=== PATIENT | female | born 1995 | race Caucasian/White ===

== ENCOUNTER 2017-06-14 22:37 | Emergency (ER) | payer OTHER ==
[~2017-06-14] VITALS: Ht 162.6 cm; Wt 57.4 kg
[2017-06-14 22:37] VITALS: TEMP 36.4; Ht 162.6 cm; Wt 57.4 kg
[2017-06-14 23:34] LABS: CREATININE 0.69 mg/dl (0.60-1.20); POTASSIUM 3.6 mmol/L (3.5-5.1)
--- NOTE | 2017-06-14 23:40 | EMERGENCY ROOM VISIT NOTE ---
History First contact with patient: 22:40 Chief Complaint: ALCOHOL OVERDOSE Stated Complaint: FALL, ETOH, Nursing Triage Summary: Pt arrived via [facility] EMS from [facility] with PD escort. Per EMS, pt found outside of [facility] stumbling. Friend brought pt inside dormatory and tried to get pt to walk up stairs to room. Pt had multiple witnessed falls while walking up stairs. Hit L knee on stairs and abrasion obtained. Denies hitting head. RA discovered pt stumbling up stairs and PD called. Pt uncooperative with PD and EMS called to scene. Pt tranpsorted to hospital. Upon arrival pt found to be uncooperative with staff and unwilling to answer questions. Pt assisted to change into hospital gown. Left knee found to be abrased. Bleeding controlled. History of Present Illness The patient is a 21 year old female who presents to the Emergency Room via BLS for evaluation of alcohol intoxication. History is limited due to patient's intoxicated state and refusal to answer questions. Per EMS, the patient was found outside of a dormitory building stumbling while trying to walk up the stairs. A friend witnessed her stumble multiple times and the patient sustained abrasions to her knees. There was no head injury. Patient is unwilling to answer questions but denies any complaints. Review of Systems Review of systems was limited due to patient's intoxicated state. 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), Unknown Dose INT UTER CONTINOUS Lisdexamfetamine Dimesylate (Vyvanse), 50 MG PO DAILY Scheduled PRN Ibuprofen (Advil), 200-600 MG PO Q4H PRN for Pain Physical Exam Vital Signs Date Time Temp Pulse Resp B/P (MAP) Pulse Ox O2 Delivery O2 Flow Rate FiO2 06/15/17 06:43 96 14 128/64 96 06/15/17 06:27 82 95 06/15/17 05:57 90 95 06/15/17 05:01 109/63 06/15/17 04:57 97 13 95 06/15/17 04:52 91 12 96 06/15/17 04:22 18 98 06/15/17 04:01 94/44 3/25/18 03:52 88 16 94 06/15/17 03:47 91 15 94 06/15/17 03:31 119/58 06/15/17 03:17 91 15 95 06/15/17 03:01 93/51 06/15/17 02:57 106/59 06/15/17 02:49 90 06/15/17 02:47 89 95 06/15/17 02:31 106/59 06/15/17 02:17 96 16 95 06/15/17 02:12 90 16 95 06/15/17 02:01 99/59 06/15/17 01:42 87 14 94 06/15/17 01:31 98/62 06/15/17 01:12 106 19 99 06/15/17 01:07 83 24 95 06/15/17 01:01 101/55 06/15/17 00:37 81 13 95 06/15/17 00:31 89/43 06/15/17 00:18 107/49 06/15/17 00:07 81 06/14/17 23:37 79 15 06/14/17 23:07 97 24 99 06/14/17 22:51 89 06/14/17 22:43 102/60 06/14/17 22:37 36.4 91 14 102/60 95 Room Air Physical Exam VITALS: Vitals are noted on the nurse's note and reviewed by myself. Vital signs stable. GENERAL: This is a 21-year-old female, lying in bed on her side, appears to be visibly intoxicated, smells of ETOH. SKIN: There is a small abrasion to the anterior left knee. No significant lacerations. HEAD: Normocephalic atraumatic. EARS: External auditory canals clear. No hemotympanum. EYES: Pupils equal round and reactive to light and accommodation. NOSE: No deformities noted. MOUTH: No loose or chipped teeth. NECK: No cervical spine tenderness. HEART: Regular rate and rhythm without murmurs gallops or rubs. LUNGS: Clear to auscultation bilaterally without wheezes, rales or rhonchi. ABDOMEN: Soft, nontender. MUSCULOSKELETAL: Full range of motion throughout. Strength intact throughout. NEURO: Speech slurred. Patient uncooperative and refuses to answer questions. Medical Decision & Procedures Laboratory Results 06/14/17 22:57 Test 06/14/17 22:57 Anion Gap 11.0 mmol/L (3-11) Est Creatinine Clear Calc Drug Dose 113.3 ml/min Estimated GFR () 146.3 Estimated GFR (Non- 126.2 BUN/Creatinine Ratio 14.8 (10-20) Calcium Level 8.0 mg/dl (8.5-10.1) Human Chorionic Gonadotropin, Qual NEG (NEG) Ethyl Alcohol mg/dL 333.0 mg/dl (0-3) Medical Decision Differential diagnosis includes alcohol intoxication, drug use, infection, hypoglycemia, head trauma, among others. The patient is a 21-year-old female who presents today for evaluation of probable alcohol intoxication. Labs revealed an alcohol of 333. Kidney function was found to be within normal limits. Labs were otherwise unremarkable. There is no evidence of head trauma or infection on exam. Of note, patient did mention to nursing staff that she had pain with urination. When the patient woke up I spoke with her about this. She reports she had an IUD inserted 2 days ago and this was what she was referring to. The patient was placed on the cardiac cath tech and placed in the prone position. They were monitored for an appropriate amount of time and when they were more sober, they were reassessed and discharged home in a taxi. The patient was advised not to drink anymore alcohol today and to follow-up with [facility] for any further concerns. Medication Reconcilliation Current Medication List: was personally reviewed by me Blood Pressure Screening Patient's blood pressure: Normal blood pressure Impression Primary Impression: Alcohol intoxication Departure Information Dispostion Home / Self-Care Condition GOOD Patient Instructions My [facility] Additional Instructions You were evaluated in emergency department for intoxication. This is a sign of Alcohol Abuse and should not be taken lightly. You had a blood alcohol level that was significantly elevated. Over the next 24 hours keep well hydrated and eat light meals. Don't drink any more alcohol today. Unless an exceptional circumstance, the Hospital DOES NOT contact anyone during your visit, nor is your Protected Medical Information released to anyone without your approval/request. This means we do not contact your Parents, the Police, [facility], etc. However, you will likely receive a bill from the Hospital and/or your Insurance company, which will usually be sent to the Primary Policy Young (often one's Parents) If your incident was on campus, or if the Police were involved, they will often contact the University to make them aware of what happened. Often this will result in you being required to take Alcohol Education classes (ie BASICS class) . Please see information given to you at discharge regarding contact for this. If the Police were involved you will likely be cited for public intoxication. Please contact either [facility] Police or the [place] Police for further information. Call 911 or return to Emergency Department if you develop: Passing out, difficulty breathing, many episodes of vomiting, blood in vomit or stool, abdominal pain, fevers, or other severe symptoms. We are always here to help if you feel you need further evaluation or treatment. Problem Qualifiers Primary Impression: Alcohol intoxication Complication of substance-induced condition: uncomplicated Qualified Codes: F10.920 - Alcohol use, unspecified with intoxication, uncomplicated
[2017-06-15] MEDS ORDERED: IBUP-1277 PO (05:21)
[2017-06-15] MEDS ORDERED: LISD50CA4 PO (05:21)
[2017-06-15] MEDS ORDERED: IUD'IUD INT UTER (05:21)
[2017-06-15 06:43] VITALS: BP 128/64; PULSE 96; O2SAT 96
== END 2017-06-15 06:46 | disposition home or self-care (01) ==
LOC: EDBD 22:37 → C.EDB 22:40
DX: F10.920 Alcohol use, unspecified with intoxication, uncomplicated (principal); Z79.899 Other long term (current) drug therapy

== ENCOUNTER 2018-06-14 12:41 | Inpatient (IN) ==
[2018-06-14 13:43] LABS: Appearance Urine Clear (Clear); Bilirubin Urine Negative (Negative); Blood Urine Negative (Negative); Color Urine Yellow; Glucose Urine UA Negative (Negative); Ketones Urine Trace (Negative); Leukocyte Esterase Urine Negative (Negative); Nitrite Urine Negative (Negative); Protein Urine Negative (Negative); Specific Gravity Urine 1.025 (1.000-1.030); Urobilinogen Urine Negative (Negative)
[2018-06-14 13:53] LABS: Basophils # (auto) 0.04 K/uL (0-0.2); Basophils % (auto) 0.4 %; Eosinophils # (auto) 0.11 K/uL (0-0.5); Eosinophils % (auto) 1.1 %; Hematocrit (blood only) 44.3 % (37-47); Hemoglobin 15.5 g/dL (12.0-16.0); Immature Granulocytes # (auto) 0.02 K/uL (0.00-0.02); Immature Granulocytes % (auto) 0.2 %; Lymphocytes # (auto) 2.12 K/uL (1.2-3.4); Lymphocytes % (auto) 20.7 %; Mean Corpuscular Volume 89.5 fL (80-100); Mean Platelet Volume 8.6 fL (7.4-10.4); Monocytes # (auto) 0.36 K/uL (0.11-0.59); Monocytes % (auto) 3.5 %; Neutrophils # (auto) 7.61 K/uL (1.4-6.5); Neutrophils % (auto) 74.1 %; Platelet Count 307 K/uL (130-400); RDW Coefficient of Variation 12.6 % (11.5-14.5); RDW Standard Deviation 40.9 fL (36.4-46.3); Red Blood Count 4.95 M/uL (4.2-5.4); White Blood Count 10.26 K/uL (4.8-10.8)
[2018-06-14 14:10] LABS: Amphetamines+Metham, Urine Pos (Neg); Barbiturates, Urine Neg (Neg); Benzodiazepine, Urine Neg (Neg); Cocaine, Urine Neg (Neg); MDMA (Ecstacy), Urine Neg (Neg); Methadone, Urine Neg (Neg); Opiate, Urine Neg (Neg); Phencyclidine, Urine Neg (Neg)
[2018-06-14 14:11] LABS: Alanine Aminotransferase 24 U/L (12-78); Albumin Level 4.3 gm/dl (3.4-5.0); Aspartate Aminotransferase 20 U/L (15-37); BUN Creatinine Ratio 14.3 (10-20); Blood Urea Nitrogen 12 mg/dl (7-18); Carbon Dioxide 30 mmol/L (21-32); Chloride 107 mmol/L (98-107); Creatinine Clr Calc Pharmacy 87.1 ml/min; Est GFR (African American) 121.2; Est GFR (Non-African American) 104.6; Glucose 69 mg/dl (70-99); Sodium 144 mmol/L (136-145)
[2018-06-14 14:14] LABS: Acetaminophen < 2 ug/ml (10-30); Salicylate < 1.7 mg/dl (2.8-20)
[2018-06-14 14:22] LABS: Albumin Globulin Ratio 1.3 (0.9-2); Alkaline Phosphatase 77 U/L (45-117); Bilirubin,Total 0.5 mg/dl (0.2-1); Globulin 3.4 gm/dl (2.5-4.0); Total Protein 7.7 gm/dl (6.4-8.2)
[2018-06-14 14:25] LABS: Pregnancy Test, Serum Negative (Negative)
--- NOTE | 2018-06-14 16:00 | Emergency Department Note ---
Entered by Westley Brown acting as a scribe for History of Present Illness General Chief complaint: Mental Health Evaluation Stated complaint: MENTAL HEALTH EVAL Time Seen by Provider: 06/14/18 12:53 Source: patient History of Present Illness Onset (ago): day(s) (today) Location: head Pain Consistency: + constant Quality: + other (suicidal ideations) Associated symptoms: + other (Positive for paranoia. Negative for hallucinations and homicidal ideations.) The patient is a 22 year old female who presents to the emergency department with complaints of constant suicidal ideations beginning today. The patient states that she has a history of depression and anxiety. She notes that a friend called police today because the patient told him that she would be fine is she went to sleep and did not wake up. She reports that she took six lamotrigine pills, extra melatonin, and the rest of her normal medication this morning around 1100. The patient states that she has had suicidal thoughts in the past but has never tried to harm herself. She notes that she has goodbye letters written. She reports that she has thoughts of overdosing. The patient states that she is extremely paranoid, and she notes that her paranoia worsens when she is depressed and anxious. She denies any homicidal ideations and hallucinations. She reports that both of her parents have mental illnesses. The patient states that she drinks alcohol but does not use cigarettes and drugs. Home Medications Home Medications Medication Instructions Recorded Confirmed Type buspirone 15 mg PO Q12 06/14/18 06/14/18 History lamotrigine 25 mg PO QPM 06/14/18 06/14/18 History lisdexamfetamine [Vyvanse] 50 mg PO QAM 06/14/18 06/14/18 History venlafaxine 75 mg PO QAM 06/14/18 06/14/18 History venlafaxine 150 mg PO QAM 06/14/18 06/14/18 History Allergies Allergy/AdvReac Type Severity Reaction Status Date / Time No Known Allergies Allergy Verified 06/14/18 13:36 Past Med/Surg History Medical History Anxiety Depression Family History Other No significant family history Social History Preferred Language: Micronesian Communication Ability: Effective Yeast Maker Required: No Beliefs That Will Affect Care: None Feels Safe at Home: Yes Smoking Status: Never smoker Hx Alcohol Use: Yes Hx Substance Use: No Review of Systems See HPI for pertinent positives & negatives. and A total of 10 systems reviewed and were otherwise negative Physical Exam Vital Signs Vital Signs - 24 hr 06/16/18 07:11 06/16/18 07:12 Temperature 36.7 C Temperature Source Oral Pulse Rate [Left Brachial] 90 105 H Pulse Rhythm [Left Brachial] Regular Regular Pulse Strength [Left Brachial] Normal Normal Respiratory Rate 16 Respiratory Effort / Characteristics Non-Labored Respiratory Depth Normal Respiratory Pattern Regular Blood Pressure [Left Arm] 114/76 101/64 Blood Pressure Mean [Left Arm] 88 76 Blood Pressure Position [Left Arm] Lying Sitting GENERAL: alert, well appearing, well nourished, no distress, non-toxic EYE EXAM: normal conjunctiva, PERRL and EOM's grossly intact OROPHARYNX: no exudate, no erythema, lips, buccal mucosa, and tongue normal and mucous membranes are moist NECK: supple, no nuchal rigidity, no adenopathy, non-tender LUNGS: Clear to auscultation. Normal chest wall mechanics HEART: no murmurs, S1 normal and S2 normal ABDOMEN: abdomen soft, non-tender, normo-active bowel sounds, no masses, no rebound or guarding. BACK: Back is symmetrical on inspection and there is no deformity, no midline tenderness, no CVA tenderness. SKIN: no rashes and no bruising UPPER EXTREMITIES: upper extremities are grossly normal. FROM. LOWER EXTREMITIES: No pitting edema. FROM. NEURO EXAM: Normal sensorium, cranial nerves II-XII grossly intact, normal speech, no gross weakness of arms, no gross weakness of legs. PSYCH: Positive SI with plan, depression, anxiety, positive paranoia, denies h allucinations. Course 1300: Past medical records reviewed. The patient was evaluated in room A7, and a complete history and physical examination were performed. 1530: Case discussed with poison control. They suggested adding EKG. If no concerning findings, could continue to pursue psychiatric mgmt. 1705: The patient was accepted to [facility]. Administered Medications Buspirone HCl (Buspar) 15 mg PO BID ESTUARDO Stop: 07/14/18 20:59 Last Admin: 06/16/18 09:40 Dose: 15 mg Documented by: [id number] Admin: 06/15/18 21:27 Dose: 15 mg Documented by: [id number] Admin: 06/15/18 10:01 Dose: 15 mg Documented by: [id number] Cosigned by: [id number] Admin: 06/14/18 21:18 Dose: 15 mg Documented by: [id number] Escitalopram Oxalate (Lexapro) 10 mg PO [facility] Stop: 07/15/18 10:14 Last Admin: 06/16/18 09:40 Dose: 10 mg Documented by: [id number] Admin: 06/15/18 11:18 Dose: 10 mg Documented by: [id number] Hydroxyzine HCl (Vistaril) 50 mg PO HSZ PRN PRN Reason: Insomnia Stop: 07/14/18 17:42 Last Admin: 06/15/18 22:23 Dose: 50 mg Documented by: [id number] Admin: 06/14/18 21:20 Dose: 50 mg Documented by: [id number] Venlafaxine HCl (Effexor Extended Release) 150 mg PO [facility] Stop: 07/15/18 10:14 Last Admin: 06/16/18 09:40 Dose: 150 mg Documented by: [id number] Admin: 06/15/18 11:18 Dose: 150 mg Documented by: [id number] Discontinued Medications Buspirone HCl (Buspar) 10 mg PO NOW STA Stop: 06/15/18 10:11 Last Admin: 06/15/18 15:33 Dose: Not Given Documented by: [id number] Buspirone HCl (Buspar) 15 mg PO NOW STA Stop: 06/15/18 11:22 Last Admin: 06/15/18 15:33 Dose: Not Given Documented by: [id number] Medical Decision Making Differential Diagnosis Differential diagnosis: Etiologies such as psychiatric disorder, infection, hypoglycemia, electrolyte abnormalities, cardiac sources, intracerebral event, toxicological process, neurologic disorder, as well as others were entertained. Medical Records Attestation: I reviewed the patient's medical records. Home Medications Current Medication List: was personally reviewed by me Laboratory Data Attestation: I reviewed the patient's lab results. Result diagrams: 06/14/18 13:43 06/14/18 13:43 Lab Results 06/14/18 06/14/18 06/14/18 Range/Units 13:27 13:27 13:43 WBC 10.26 (4.8-10.8) K/uL RBC 4.95 (4.2-5.4) M/uL Hgb 15.5 (12.0-16.0) g/dL Hct 44.3 (37-47) % MCV 89.5 (80-100) fL MCH 31.3 (25-34) pg MCHC 35.0 (32-36) g/dL RDW Std Deviation 40.9 (36.4-46.3) fL RDW Coeff of Miri 12.6 (11.5-14.5) % Plt Count 307 (130-400) K/uL MPV 8.6 (7.4-10.4) fL Immature Gran % (Auto) 0.2 % Neut % (Auto) 74.1 % Lymph % (Auto) 20.7 % [place] % (Auto) 3.5 % Eos % (Auto) 1.1 % Baso % (Auto) 0.4 % Immature Gran # (Auto) 0.02 (0.00-0.02) K/uL Neut # (Auto) 7.61 H (1.4-6.5) K/uL Lymph # (Auto) 2.12 (1.2-3.4) K/uL [place]k # (Auto) 0.36 (0.11-0.59) K/uL Eos # (Auto) 0.11 (0-0.5) K/uL Baso # (Auto) 0.04 (0-0.2) K/uL Sodium (136-145) mmol/L Potassium (3.5-5.1) mmol/L Chloride (98-107) mmol/L Carbon Dioxide (21-32) mmol/L Anion Gap (3-11) BUN (7-18) mg/dl Creatinine (0.6-1.2) mg/dl Est Cr Clr Drug Dosing ml/min Est GFR ( Amer) Est GFR (Non-Af Amer) BUN/Creatinine Ratio (10-20) Glucose (70-99) mg/dl Calcium (8.5-10.1) mg/dl Total Bilirubin (0.2-1) mg/dl AST (15-37) U/L ALT (12-78) U/L Alkaline Phosphatase (45-117) U/L Troponin I (0-0.045) ng/ml Total Protein (6.4-8.2) gm/dl Albumin (3.4-5.0) gm/dl Globulin (2.5-4.0) gm/dl Albumin/Globulin Ratio (0.9-2) TSH (0.300-4.500) uIu/ml HCG, Qual (Negative) Urine Color Yellow Urine Appearance Clear (Clear) Urine pH 7.0 (4.5-7.5) Ur Specific [place] 1.025 (1.000-1.030) Urine Protein Negative (Negative) Urine Glucose (UA) Negative (Negative) Urine Ketones Trace H (Negative) Urine Blood Negative (Negative) Urine Nitrite Negative (Negative) Urine Bilirubin Negative (Negative) Urine Urobilinogen Negative (Negative) Ur Leukocyte Esterase Negative (Negative) Salicylates (2.8-20) mg/dl Urine Opiates Screen Neg (Neg) Ur Methadone, Qual Neg (Neg) Acetaminophen (10-30) ug/ml Urine Barbiturates Neg (Neg) Ur Phencyclidine (PCP) Neg (Neg) U Amphetamin/Meth Scrn Pos H (Neg) MDMA (Ecstasy) Screen Neg (Neg) U Benzodiazepines Scrn Neg (Neg) Ur Cocaine Metabolite Neg (Neg) U Marijuana (THC) Screen Neg (Neg) Ethyl Alcohol mg/dL (0-3) mg/dl 06/14/18 06/14/18 06/14/18 Range/Units 13:43 13:43 13:43 WBC (4.8-10.8) K/uL RBC (4.2-5.4) M/uL Hgb (12.0-16.0) g/dL Hct (37-47) % MCV (80-100) fL MCH (25-34) pg MCHC (32-36) g/dL RDW Std Deviation (36.4-46.3) fL RDW Coeff of Miri (11.5-14.5) % Plt Count (130-400) K/uL MPV (7.4-10.4) fL Immature Gran % (Auto) % Neut % (Auto) % Lymph % (Auto) % [place] % (Auto) % Eos % (Auto) % Baso % (Auto) % Immature Gran # (Auto) (0.00-0.02) K/uL Neut # (Auto) (1.4-6.5) K/uL Lymph # (Auto) (1.2-3.4) K/uL [place] # (Auto) (0.11-0.59) K/uL Eos # (Auto) (0-0.5) K/uL Baso # (Auto) (0-0.2) K/uL Sodium 144 (136-145) mmol/L Potassium 4.0 (3.5-5.1) mmol/L Chloride 107 (98-107) mmol/L Carbon Dioxide 30 (21-32) mmol/L Anion Gap 7.0 (3-11) BUN 12 (7-18) mg/dl Creatinine 0.81 (0.6-1.2) mg/dl Est Cr Clr Drug Dosing 87.1 ml/min Est GFR ( Amer) 121.2 Est GFR (Non-Af Amer) 104.6 BUN/Creatinine Ratio 14.3 (10-20) Glucose 69 L (70-99) mg/dl Calcium 9.0 (8.5-10.1) mg/dl Total Bilirubin 0.5 (0.2-1) mg/dl AST 20 (15-37) U/L ALT 24 (12-78) U/L Alkaline Phosphatase 77 (45-117) U/L Troponin I < 0.015 (0-0.045) ng/ml Total Protein 7.7 (6.4-8.2) gm/dl Albumin 4.3 (3.4-5.0) gm/dl Globulin 3.4 (2.5-4.0) gm/dl Albumin/Globulin Ratio 1.3 (0.9-2) TSH 0.777 (0.300-4.500) uIu/ml HCG, Qual (Negative) Urine Color Urine Appearance (Clear) Urine pH (4.5-7.5) Ur Specific [place] (1.000-1.030) Urine Protein (Negative) Urine Glucose (UA) (Negative) Urine Ketones (Negative) Urine Blood (Negative) Urine Nitrite (Negative) Urine Bilirubin (Negative) Urine Urobilinogen (Negative) Ur Leukocyte Esterase (Negative) Salicylates < 1.7 L (2.8-20) mg/dl Urine Opiates Screen (Neg) Ur Methadone, Qual (Neg) Acetaminophen < 2 L (10-30) ug/ml Urine Barbiturates (Neg) Ur Phencyclidine (PCP) (Neg) U Amphetamin/Meth Scrn (Neg) MDMA (Ecstasy) Screen (Neg) U Benzodiazepines Scrn (Neg) Ur Cocaine Metabolite (Neg) U Marijuana (THC) Screen (Neg) Ethyl Alcohol mg/dL 64.5 H (0-3) mg/dl 06/14/18 06/14/18 Range/Units 13:43 13:43 WBC (4.8-10.8) K/uL RBC (4.2-5.4) M/uL Hgb (12.0-16.0) g/dL Hct (37-47) % MCV (80-100) fL MCH (25-34) pg MCHC (32-36) g/dL RDW Std Deviation (36.4-46.3) fL RDW Coeff of Miri (11.5-14.5) % Plt Count (130-400) K/uL MPV (7.4-10.4) fL Immature Gran % (Auto) % Neut % (Auto) % Lymph % (Auto) % [place] % (Auto) % Eos % (Auto) % Baso % (Auto) % Immature Gran # (Auto) (0.00-0.02) K/uL Neut # (Auto) (1.4-6.5) K/uL Lymph # (Auto) (1.2-3.4) K/uL [place] # (Auto) (0.11-0.59) K/uL Eos # (Auto) (0-0.5) K/uL Baso # (Auto) (0-0.2) K/uL Sodium (136-145) mmol/L Potassium (3.5-5.1) mmol/L Chloride (98-107) mmol/L Carbon Dioxide (21-32) mmol/L Anion Gap (3-11) BUN (7-18) mg/dl Creatinine (0.6-1.2) mg/dl Est Cr Clr Drug Dosing ml/min Est GFR ( Amer) Est GFR (Non-Af Amer) BUN/Creatinine Ratio (10-20) Glucose (70-99) mg/dl Calcium (8.5-10.1) mg/dl Total Bilirubin (0.2-1) mg/dl AST (15-37) U/L ALT (12-78) U/L Alkaline Phosphatase (45-117) U/L Troponin I Cancelled (0-0.045) ng/ml Total Protein (6.4-8.2) gm/dl Albumin (3.4-5.0) gm/dl Globulin (2.5-4.0) gm/dl Albumin/Globulin Ratio (0.9-2) TSH (0.300-4.500) uIu/ml HCG, Qual Negative (Negative) Urine Color Urine Appearance (Clear) Urine pH (4.5-7.5) Ur Specific [place] (1.000-1.030) Urine Protein (Negative) Urine Glucose (UA) (Negative) Urine Ketones (Negative) Urine Blood (Negative) Urine Nitrite (Negative) Urine Bilirubin (Negative) Urine Urobilinogen (Negative) Ur Leukocyte Esterase (Negative) Salicylates (2.8-20) mg/dl Urine Opiates Screen (Neg) Ur Methadone, Qual (Neg) Acetaminophen (10-30) ug/ml Urine Barbiturates (Neg) Ur Phencyclidine (PCP) (Neg) U Amphetamin/Meth Scrn (Neg) MDMA (Ecstasy) Screen (Neg) U Benzodiazepines Scrn (Neg) Ur Cocaine Metabolite (Neg) U Marijuana (THC) Screen (Neg) Ethyl Alcohol mg/dL (0-3) mg/dl ECG Data Attestation: I personally reviewed and interpreted this ECG as follows: Indication: toxicologic Rate (beats per minute): 104 Rhythm: sinus tachycardia Findings: + RBBB (appearance of incomplete RBBB in V2) and + T-wave inversion (in 3 and V3); no ST elevation Comparison ECG Date: no prior available Additional Comments: Normal axis, normal intervals. Blood Pressure Blood Pressure Findings: Normal blood pressure Blood Pressure Disposition: did not require urgent referral MDM Narrative Pt here calm and cooperative but with concerning story and history. She was medically cleared and evaluated by psych supportive employment case manager. Pt agreeable with plan and signed 201. Impression & Plan Depression, Suicidal ideation, Overdose Discharge Plan Visit Data *Final* Discharge Date/Time: 06/14/18 17:11 Chief Complaint: Mental Health Evaluation Stated Complaint: MENTAL HEALTH EVAL ED Provider: Martha Hernandez Discharge Problem: Depression, Suicidal ideation, Overdose Patient Disposition: Admitted As Inpatient Discharge Instructions Interventions: ED Discharge Assessment Last Done: 06/14/18 17:11 Discharge Problem: Depression Qualifiers: Depression Type: major depressive disorder Major depression recurrence: recurrent Active/Remission status: currently active Major depression episode severity: moderate Qualified Code(s): F33.1 - Major depressive disorder, recurrent, moderate Overdose Qualifiers: Encounter type: initial encounter Injury intent: intentional self-harm Qualified Code(s): T50.902A - Poisoning by unspecified drugs, medicaments and biological substances, intentional self-harm, initial encounter The scribe's documentation has been prepared under my direction and personally reviewed by me in its entirety. I confirm that the note above accurately r eflects all work, treatment, procedures, and medical decision making performed by me.
[2018-06-14 16:21] LABS: Troponin I < 0.015 ng/ml (0-0.045)
[2018-06-14 16:43] VITALS: O2SAT 99
[2018-06-14] MEDS ORDERED: BISMUTH SUBSALICYLATE PER ML OMNICELL CHARGE PO PRN (17:43)
[2018-06-14] MEDS ORDERED: SODIUM CHLORIDE 0.65% NA SOLN 45 ML (OCEAN) PRN (17:43)
[2018-06-14] MEDS ORDERED: ACETAMINOPHEN 325 MG TAB PO PRN (17:43)
[2018-06-14] MEDS ORDERED: ALUMINUM/MAGNESIUM SUSP 30 ML UDC PO PRN (17:43)
[2018-06-14] MEDS ORDERED: MAGNESIUM HYDROXIDE SUSP 30 ML UDC PO PRN (17:43)
[2018-06-14] MEDS: BusPIRone 15 MG TAB PO SCH (21:18)
[2018-06-15] MEDS: BusPIRone 15 MG TAB PO SCH ×2 (10:01→21:27)
--- NOTE | 2018-06-15 10:09 | History & Physical ---
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 This was perceived as suicidal by a friend. She reports that medications of never had a robust response and does not think that the Effexor has been helpful and agrees now to taper down on Effexor with a plan to trial Lexapro. She has had only one trial of an SSRI, Zoloft, to which she had a negative reaction of increasing depression. She was only recently started on Lamictal, current dose 25 mg in the evening. Although this is a low dose, she does not think that it has been helping and it correlates with a period of time during which her alcohol response has been magnified. Will discontinue unless we receive information from her outpatient provider that she had a specific purpose for it. We will assist the patient to obtain local providers, have a family meeting with her parents and be in contact with the University as needed. At this time, the patient requires inpatient mental health treatment until we have determined that she is safe for discharge and no longer at risk of self-harm. (1) Depression: 06/15 - Reduce Effexor XR to 150 mg daily to begin taper - Start Lexapro 10 mg daily - Continue home dose of buspar - Will hold Vyvanse today to evaluate anxiety off of stimulants - Q q5 min checks for safety - Encourage participation in group and individual counseling - FAmily meeting - Will need local providers - Obtain OP records from [facility] in [facility] - Recommend abstaining from alcohol given that she can predict being depressed the next day - Assist the patient to explore healthy coping strategies - Safety planning Active/Remission status: currently active Depression Type: major depressive disorder Major depression episode severity: moderate Major d epression recurrence: recurrent Qualified Code(s): F33.1 - Major depressive disorder, recurrent, moderate Present on Admission?: Yes Inventory Assets Strengths: Intelligence, desire to get better Needs: Give up binge drinking, healthy coping strategies needed Risk Factors Assessment Male: No : Yes Do You Have Access To A Gun?: No Health Problems: No Mental Health Diagnoses: Yes Substance Use Disorders: No Previous Attempt: No Family History of Suicide: No Previous Psychiatric Hospitalization: No Hopelessness: No Smoker: No Protective Factors Assessment : No Responsible for Young Children: No Employed: Yes Stable Relationships: Yes Supportive Family: Yes Psychiatric History Identifying Data NANDO BOTELLO is a 22-year-old [facility], who presented to the emergency department after taking extra Lamictal and melatonin. She denies acute stressors. Information is gathered from the patient and considered to be reliable. Chief Complaint "" My friend thought that I took extra medicines to but I just wanted to sleep. History of Present Illness The patient is a 22-year-old [facility], currently in treatment with a nurse practitioner at home in the [place] area. She admits that she has struggled with anxiety for a long time, since she was a child and when she began having panic attacks, went into treatment for the first time. Her nurse practitioner started her on Zoloft but unfortunately she got more depressed. She was then started on Effexor and BuSpar which she continues to take. She does not think that the Effexor has been helpful at any dose. She was recently, several months ago, started on Lamictal although denies any symptoms of bipolarity. 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 She also notes that she is particularly sensitive when it comes to friends, for example saying that if her friends do not call her back in the time frame she expects, she thinks that they do not like her. The patient has noted that she gets more depressed after she drinks and she generally goes up to drink until drunk 1 time per week. She drank this past Friday and on Friday woke up feeling more depressed. She denies that she was feeling suicidal but says that she did not want to experience the depression and so just wanted to go to sleep, and that is why she took Lamictal and melatonin. She was apparently talking with a friend making statements about wanting to sleep away her depression and he took it as suicidal statements. Over the course of the last several months she describes that her mood has been somewhat up and down but predominantly depressed. She again denies that she has suicidal thoughts today. She describes her sleep is "awful" with significant difficulty falling asleep as much as 2 hours. Her appetite is been up which it usually is when she is depressed but her weight has been stable. She reports that her anxiety of late has been relatively well controlled and denies current panic attacks. Her energy is described as low. She denies hallucinations, self-injurious acts, symptoms of an eating disorder or OCD. She does admit that she chews her nails when she is anxious. She denies discrete episodes of euphoric mood, sleeplessness or pleasure seeking behaviors that would be congruent with a bipolar disorder. Past Psychiatric History Previous Psych History: Sees a nurse practitioner at home in the [place] area and last semester when she was in [place], saw a psychiatrist. Current Psychiatric Diagnosis: Depression, Anxiety, ADD Outpatient Services: Nurse practitioner at home in the [facility] Previous Psych Admissions: Denies Do You Have Access To A Gun?: No History of Previous Suicide Attempt: No Describe Attempts in the Past: No previous attempts Past Medication Trials: Zoloftincrease in depression Seroquelworked well for sleep Past Head Trauma/Neuro History History of Concussion/Seizure: Yes History of 3 concussions related to sports (track, field hockey, soccer) Allergies Allergy/AdvReac Type Severity Reaction Status Date / Time No Known Allergies Allergy Verified 06/14/18 13:36 Home Medications Home Medications Medication Instructions Recorded Confirmed Type buspirone 15 mg PO Q12 06/14/18 06/14/18 History lamotrigine 25 mg PO QPM 06/14/18 06/14/18 History lisdexamfetamine [Vyvanse] 50 mg PO QAM 06/14/18 06/14/18 History venlafaxine 75 mg PO QAM 06/14/18 06/14/18 History venlafaxine 150 mg PO QAM 06/14/18 06/14/18 History Family History Family History of: Depression and Anxiety Family Mental Health History Comment: Parents with anxiety, father with possible depression Alcohol History Hx of Alcohol Use Over the Past 12 Months: Yes (Occassionally socially) AUDIT Total Score: 5 Smoking Use Have You Smoked or Used Tobacco Products in the Last 30 Days: No Smoking Status: Never smoker Substance History Hx of Prescription Med Misuse Over the Past 12 Months: No Hx of Over the Counter Med Misuse Over the Past 12 Months: No Hx of Inhalent Misuse Over the Past 12 Months: No Hx of Organic Substance Use Over the Past 12 Months: No Hx of Illegal Substances/Street Drug Use Over Past 12 Months: No Problems as a Result of Past Substance Use: None Identified Personal History Living Arrangements: Home Childhood: Grew up in [facility]. She was raised by both parents. Mother is a mis director, father as an investment underwriter. She has 2 younger siblings, one sister, one brother. 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 Beliefs That Will Affect Care: None Feels Safe at Home: Yes Smoking Status: Never smoker Hx Alcohol Use: Yes Hx Substance Use: No Review of Systems All systems reviewed & are unremarkable except as noted in HPI & below Additional Comments: Occasional palpitations, EKG within normal limits and recent Holter was negative Integumentary: + problem reported Small healing burn on left wrist from a curling iron Physical Exam Vital Signs (Past 24 Hours) Last Vital Signs Temp 36.6 C 06/15/18 07:06 Pulse 74 06/15/18 07:07 Resp 16 06/15/18 07:06 BP 117/78 06/15/18 07:07 Pulse Ox 99 06/14/18 16:42 Results & Data Laboratory Results Laboratory Results - last 24 hr 06/14/18 06/14/18 06/14/18 13:27 13:27 13:43 WBC 10.26 RBC 4.95 Hgb 15.5 Hct 44.3 MCV 89.5 MCH 31.3 MCHC 35.0 RDW Std Deviation 40.9 RDW Coeff of Miri 12.6 Plt Count 307 MPV 8.6 Immature Gran % (Auto) 0.2 Neut % (Auto) 74.1 Lymph % (Auto) 20.7 [place] % (Auto) 3.5 Eos % (Auto) 1.1 Baso % (Auto) 0.4 Immature Gran # (Auto) 0.02 Neut # (Auto) 7.61 H Lymph # (Auto) 2.12 [place] # (Auto) 0.36 Eos # (Auto) 0.11 Baso # (Auto) 0.04 Sodium Potassium Chloride Carbon Dioxide Anion Gap BUN Creatinine Est Cr Clr Drug Dosing Est GFR ( Amer) Est GFR (Non-Af Amer) BUN/Creatinine Ratio Glucose Calcium Total Bilirubin AST ALT Alkaline Phosphatase Troponin I Total Protein Albumin Globulin Albumin/Globulin Ratio TSH HCG, Qual Urine Color Yellow Urine Appearance Clear Urine pH 7.0 Ur Specific [place] 1.025 Urine Protein Negative Urine Glucose (UA) Negative Urine Ketones Trace H Urine Blood Negative Urine Nitrite Negative Urine Bilirubin Negative Urine Urobilinogen Negative Ur Leukocyte Esterase Negative Salicylates Urine Opiates Screen Neg Ur Methadone, Qual Neg Acetaminophen Urine Barbiturates Neg Ur Phencyclidine (PCP) Neg U Amphetamin/Meth Scrn Pos H MDMA (Ecstasy) Screen Neg U Benzodiazepines Scrn Neg Ur Cocaine Metabolite Neg U Marijuana (THC) Screen Neg Ethyl Alcohol mg/dL 06/14/18 06/14/18 06/14/18 13:43 13:43 13:43 WBC RBC Hgb Hct MCV MCH MCHC RDW Std Deviation RDW Coeff of Miri Plt Count MPV Immature Gran % (Auto) Neut % (Auto) Lymph % (Auto) [place] % (Auto) Eos % (Auto) Baso % (Auto) Immature Gran # (Auto) Neut # (Auto) Lymph # (Auto) [place] # (Auto) Eos # (Auto) Baso # (Auto) Sodium 144 Potassium 4.0 Chloride 107 Carbon Dioxide 30 Anion Gap 7.0 BUN 12 Creatinine 0.81 Est Cr Clr Drug Dosing 87.1 Est GFR ( Amer) 121.2 Est GFR (Non-Af Amer) 104.6 BUN/Creatinine Ratio 14.3 Glucose 69 L Calcium 9.0 Total Bilirubin 0.5 AST 20 ALT 24 Alkaline Phosphatase 77 Troponin I < 0.015 Total Protein 7.7 Albumin 4.3 Globulin 3.4 Albumin/Globulin Ratio 1.3 TSH 0.777 HCG, Qual Urine Color Urine Appearance Urine pH Ur Specific [place] Urine Protein Urine Glucose (UA) Urine Ketones Urine Blood Urine Nitrite Urine Bilirubin Urine Urobilinogen Ur Leukocyte Esterase Salicylates < 1.7 L Urine Opiates Screen Ur Methadone, Qual Acetaminophen < 2 L Urine Barbiturates Ur Phencyclidine (PCP) U Amphetamin/Meth Scrn MDMA (Ecstasy) Screen U Benzodiazepines Scrn Ur Cocaine Metabolite U Marijuana (THC) Screen Ethyl Alcohol mg/dL 64.5 H 06/14/18 06/14/18 13:43 13:43 WBC RBC Hgb Hct MCV MCH MCHC RDW Std Deviation RDW Coeff of Miri Plt Count MPV Immature Gran % (Auto) Neut % (Auto) Lymph % (Auto) [place] % (Auto) Eos % (Auto) Baso % (Auto) Immature Gran # (Auto) Neut # (Auto) Lymph # (Auto) [place] # (Auto) Eos # (Auto) Baso # (Auto) Sodium Potassium Chloride Carbon Dioxide Anion Gap BUN Creatinine Est Cr Clr Drug Dosing Est GFR ( Amer) Est GFR (Non-Af Amer) BUN/Creatinine Ratio Glucose Calcium Total Bilirubin AST ALT Alkaline Phosphatase Troponin I Cancelled Total Protein Albumin Globulin Albumin/Globulin Ratio TSH HCG, Qual Negative Urine Color Urine Appearance Urine pH Ur Specific [place] Urine Protein Urine Glucose (UA) Urine Ketones Urine Blood Urine Nitrite Urine Bilirubin Urine Urobilinogen Ur Leukocyte Esterase Salicylates Urine Opiates Screen Ur Methadone, Qual Acetaminophen Urine Barbiturates Ur Phencyclidine (PCP) U Amphetamin/Meth Scrn MDMA (Ecstasy) Screen U Benzodiazepines Scrn Ur Cocaine Metabolite U Marijuana (THC) Screen Ethyl Alcohol mg/dL Current Inpatient Medications Current Inpatient Medications: Current Inpatient Medications Acetaminophen (Tylenol) 650 mg PO Q4H PRN PRN Reason: Headache or Minor Fever Stop: 07/14/18 17:42 Al Hydrox/Mg Hydrox/Simethicone (Maalox) 30 ml PO Q4H PRN PRN Reason: GI Upset Stop: 07/14/18 17:42 Bismuth Subsalicylate (Kaopectate) 15 ml PO PRN PRN PRN Reason: Loose Stool Stop: 07/14/18 17:42 Buspirone HCl (Buspar) 15 mg PO BID ESTUARDO Stop: 07/14/18 20:59 Last Admin: 06/14/18 21:18 Dose: 15 mg Documented by: Hydroxyzine HCl (Vistaril) 50 mg PO HSZ PRN PRN Reason: Insomnia Stop: 07/14/18 17:42 Last Admin: 06/14/18 21:20 Dose: 50 mg Documented by: Hydroxyzine HCl (Vistaril) 25 mg PO Q4H PRN PRN Reason: Anxiety Stop: 07/14/18 17:42 Magnesium Hydroxide (Milk Of Magnesia) 30 ml PO DAILY PRN PRN Reason: Heartburn Stop: 07/14/18 17:42 Sodium Chloride ([place] Nasal) 1 - 2 sprays NA PRN PRN PRN Reason: Nasal Dryness/Congestion Stop: 07/14/18 17:42 CPT Code CPT Code Initial Hospital Care: 34610
[2018-06-15] MEDS: VENLAFAXINE HCL XR 150 MG CAPXR PO SCH (11:18)
[2018-06-15] MEDS: ESCITALOPRAM OXALATE 10 MG TAB PO SCH (11:18)
[2018-06-15] MEDS ORDERED: BusPIRone 15 MG TAB PO STA (11:21)
[2018-06-16] MEDS ORDERED: VENLAFAXINE HCL XR 150 MG CAPXR PO SCH (09:00)
[2018-06-16] MEDS: ESCITALOPRAM OXALATE 10 MG TAB PO SCH (09:40)
[2018-06-16] MEDS: BusPIRone 15 MG TAB PO SCH ×2 (09:40→21:09)
[2018-06-16] MEDS: VENLAFAXINE HCL XR 150 MG CAPXR PO SCH (09:40)
--- NOTE | 2018-06-16 14:36 | Psychiatric Progress Note ---
Date of Service June 16, 2018 Impression / Recommendations Impression Adjusting to the support and structure of the milieu. Is agreeing to abstaining from alcohol for the time being, and has given much thought to her family meeting scheduled for tomorrow. She denying any discontinuation symptoms with lower dose of Effexor but will leave Lexapro/Effexor dose where it is for today and if no DC symptoms tomorrow will make another adjustment. (1) Depression: 06/15 - Reduce Effexor XR to 150 mg daily to begin taper - Start Lexapro 10 mg daily - Continue home dose of buspar - Will hold Vyvanse today to evaluate anxiety off of stimulants - Q q5 min checks for safety - Encourage participation in group and individual counseling - FAmily meeting - Will need local providers - Obtain OP records from [facility] in [facility] - Recommend abstaining from alcohol given that she can predict being depressed the next day - Assist the patient to explore healthy coping strategies - Safety planning 06/16 - Family meeting tomorrow - Continue current meds, but consider adjustment tomorrow if no DC symptoms. Inventory Assets Strengths: Intelligence, desire to get better Needs: Give up binge drinking, healthy coping strategies needed Risk Factors Assessment Male: No : Yes Do You Have Access To A Gun?: No Health Problems: No Mental Health Diagnoses: Yes Substance Use Disorders: No Previous Attempt: No Family History of Suicide: No Previous Psychiatric Hospitalization: No Hopelessness: No Smoker: No Protective Factors Assessment : No Responsible for Young Children: No Employed: Yes Stable Relationships: Yes Supportive Family: Yes Interval History Identifying Information 22 yo [employer] student, admitted voluntarily after taking extra lamictal and melatonin in the setting of severe depression. Chief Complaint "Pretty good. ". Review of Systems Sleep Information Total Hours of Sleep: 5.5 Sleep Comments: received a prn of vistaril for sleep aid. she awakened when her new roommate arrived. Meal Information Percent Meal Consumed - Breakfast: 90 Percent Meal Consumed - Lunch: 75 Percent Meal Consumed - Dinner: 80 Subjective Subjective Patient was seen & assessed and interval progress reviewed with Treatment Team. The patient says that she is adjusting to being on the unit, "They keep you busy here.". A meeting is planned with her parents tomorrow and she would like to talk with them about the things that trigger her anxiety, as well as the impact of alcohol to her mood. She says that she will be giving up alcohol for the time being, "This has taught me a lesson", and no longer wants to risk waking up severely depressed the day after drinking. She says that although her friends drink, it isn't a focus for them and she would rather stay in and hang with her friends and she thinks they will agree to this on her behalf. She is willing to have both local psychiatric providers as well as those at home and referrals have been made. She continues to deny SI. Her anxiety remains, and talks again today about the anxiety she has in social situations, wondering if she is annoying her friends or whether others like her. She says that she has learned to ask her friends during these emotionally fragile times so that they can reality check her. Physical Exam Psychiatric Orientation: alert, oriented x 3 and cooperative Apperance: appropriately dressed and appropriately groomed Eye Contact: good eye contact Motor Behavior: steady gait and station and no abnormal motor movements Speech: normal rate/rhythm/volume of speech Affect: + blunted affect Mood: + anxious mood Thought Process: goal directed thought process Thought Content: reality based without delusions Suicidal Thoughts: denies suicidal thoughts and denies suicidal plan Homicidal Thoughts: denies homicidal thoughts Hallucinations: no auditory hallucinations and no visual hallucinations Cognition: recent memory grossly intact, remote memory grossly intact, attention grossly intact and language grossly intact Estimated Intelligence: average estimated intelligence Insight: + limited insight Judgement: + limited judgement Vital Signs (Past 24 Hours) Last Vital Signs Temp 36.7 C 06/16/18 07:11 Pulse 105 H 06/16/18 07:12 Resp 16 06/16/18 07:11 BP 101/64 06/16/18 07:12 Pulse Ox 99 06/14/18 16:42 Results & Data Current Inpatient Medications Current Inpatient Medications: Current Inpatient Medications Acetaminophen (Tylenol) 650 mg PO Q4H PRN PRN Reason: Headache or Minor Fever Stop: 07/14/18 17:42 Al Hydrox/Mg Hydrox/Simethicone (Maalox) 30 ml PO Q4H PRN PRN Reason: GI Upset Stop: 07/14/18 17:42 Bismuth Subsalicylate (Kaopectate) 15 ml PO PRN PRN PRN Reason: Loose Stool Stop: 07/14/18 17:42 Buspirone HCl (Buspar) 15 mg PO BID [facility] Stop: 07/14/18 20:59 Last Admin: 06/16/18 09:40 Dose: 15 mg Documented by: Escitalopram Oxalate (Lexapro) 10 mg PO QAM ESTUARDO Stop: 07/15/18 10:14 Last Admin: 06/16/18 09:40 Dose: 10 mg Documented by: Hydroxyzine HCl (Vistaril) 50 mg PO HSZ PRN PRN Reason: Insomnia Stop: 07/14/18 17:42 Last Admin: 06/15/18 22:23 Dose: 50 mg Documented by: Hydroxyzine HCl (Vistaril) 25 mg PO Q4H PRN PRN Reason: Anxiety Stop: 07/14/18 17:42 Magnesium Hydroxide (Milk Of Magnesia) 30 ml PO DAILY PRN PRN Reason: Heartburn Stop: 07/14/18 17:42 Sodium Chloride ([place] Nasal) 1 - 2 sprays NA PRN PRN PRN Reason: Nasal Dryness/Congestion Stop: 07/14/18 17:42 Venlafaxine HCl (Effexor Extended Release) 150 mg PO QAM [facility] Stop: 07/15/18 10:14 Last Admin: 06/16/18 09:40 Dose: 150 mg Documented by: Post Discharge Appointments Primary Care Physician Name Of Family Doctor: [facility] Date of Appointment with PCP: 06/27/18 Time of Appointment with PCP: 10:30am Provider Appointment Comment: [facility] [place], [place] [address] Psychiatrist Name of Psychiatrist: [facility] Psychiatrist's Date of Appointment with Psychiatrist: 06/27/18 Time of Appointment with Psychiatrist: 10:30am Psychiatric Appointment Comment: [facility] [place], [place] [address] Therapist Name of Therapist: Leah? Government Employee Name of Government Employee: [employer] Phone Number for Government Employee: [phone] Case Management Appointment Comment: [facility] CPT Code CPT Code 85858 (1) Depression Active/Remission status: currently active Depression Type: major depressive disorder Major depression episode severity: moderate Major depression recurrence: recurrent Qualified Code(s): F33.1 - Major depressive disorder, recurrent, moderate
--- NOTE | 2018-06-17 08:44 | Psychiatric Progress Note ---
Date of Service June 17, 2018 Impression / Recommendations Impression Is being cross tapered from venlafaxine XR to escitalopram, and is tolerating it well. Has a family meeting with parents today, and we will need outpatient care both locally and in her home town, and she will be returning there for the summer in about a month. (1) Depression: 06/15 - Reduce Effexor XR to 150 mg daily to begin taper - Start Lexapro 10 mg daily - Continue home dose of buspar - Will hold Vyvanse today to evaluate anxiety off of stimulants - Q q5 min checks for safety - Encourage participation in group and individual counseling - FAmily meeting - Will need local providers - Obtain OP records from [facility] in [facility] - Recommend abstaining from alcohol given that she can predict being depressed the next day - Assist the patient to explore healthy coping strategies - Safety planning 06/16 - Family meeting tomorrow - Continue current meds, but consider adjustment tomorrow if no DC symptoms. 06/17 -Family meeting with parents today. -Decrease venlafaxine XR to 75 mg daily for tomorrow, and continue escitalopram 10 mg daily and buspirone 15 mg twice daily. -Patient will need follow-up with a psychiatrist both locally and in her home town, and would like to return to therapy with Melodie at home (although does not know her last name or the name of her practice, so we will need to determine this in order to re-refer her). She has previously been seen a OIL EXTRACTOR, but may benefit from working with a psychiatrist. Inventory Assets Strengths: Intelligence, desire to get better Needs: Give up binge drinking, healthy coping strategies needed Risk Factors Assessment Male: No : Yes Do You Have Access To A Gun?: No Health Problems: No Mental Health Diagnoses: Yes Substance Use Disorders: No Previous Attempt: No Family History of Suicide: No Previous Psychiatric Hospitalization: No Hopelessness: No Smoker: No Protective Factors Assessment : No Responsible for Young Children: No Employed: Yes Stable Relationships: Yes Supportive Family: Yes Interval History Identifying Information 22 y/o [employer] 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 Chief Complaint "Could be better, just had my meeting with Phil, and wasn't exactly thrilled". Review of Systems Notes No discontinuation symptoms. Sleep Information Total Hours of Sleep: 6.75 Sleep Comments: received an hs dose of vistaril for sleep aid. Meal Information Percent Meal Consumed - Breakfast: 90 Percent Meal Consumed - Lunch: 100 Percent Meal Consumed - Dinner: 100 Subjective Subjective Patient was seen & assessed and interval progress reviewed with Treatment Team. Staff report she is bright, going to groups, denying SI and minimizing her overdose. She wants to resume outpatient treatment with providers at home in the [place] area. On my assessment the patient states she is upset after reviewing her treatment plan, as she was hoping to be discharged today. She says she knows her overdose was serious, but knows herself better than anyone else, and doesn't think she'd ever overdose again. She is anxious to be discharged so that she can return to her friends and classes. She has a family meeting with her parents this afternoon, and is worried that they will be more intrusive into her life after her suicide attempt due to being worried about her safety, at the same time stating she does not really think she needs the meeting, as she is already open with her parents about her problems. She is willing for outpatient treatment, and although she told the social services she wanted to follow up with a therapist and care clinician in her home town near [place], she now states she would like to have local aftercare as well. After much discussion, she is agreeable to a plan to have her meeting today, refer her for outpatient care, and discharge tomorrow. Physical Exam Psychiatric Orientation: alert, oriented x 3 and cooperative Apperance: appropriately dressed, appropriately groomed and appeared stated age Eye Contact: good eye contact Motor Behavior: steady gait and station and no abnormal motor movements Speech: normal rate/rhythm/volume of speech Irritable tone at times Affect: + irritable affect Tearful at points during the interview when discussing desire to be discharged. "I am fine." Thought Process: goal directed thought process Thought Content: + preoccupation (With desire to be discharged) Suicidal Thoughts: denies suicidal thoughts Homicidal Thoughts: denies homicidal thoughts Hallucinations: no auditory hallucinations Cognition: recent memory grossly intact, attention grossly intact and language grossly intact Estimated Intelligence: consistent with education level Insight: + limited insight Judgement: + fair judgement Vital Signs (Past 24 Hours) Last Vital Signs Temp 36.6 C 06/17/18 07:06 Pulse 91 H 06/17/18 07:06 Resp 16 06/17/18 07:06 BP 105/64 06/17/18 07:06 Pulse Ox 99 06/14/18 16:42 Results & Data Current Inpatient Medications Current Inpatient Medications: Current Inpatient Medications Acetaminophen (Tylenol) 650 mg PO Q4H PRN PRN Reason: Headache or Minor Fever Stop: 07/14/18 17:42 Al Hydrox/Mg Hydrox/Simethicone (Maalox) 30 ml PO Q4H PRN PRN Reason: GI Upset Stop: 07/14/18 17:42 Bismuth Subsalicylate (Kaopectate) 15 ml PO PRN PRN PRN Reason: Loose Stool Stop: 07/14/18 17:42 Buspirone HCl (Buspar) 15 mg PO BID ESTUARDO Stop: 07/14/18 20:59 Last Admin: 06/16/18 21:09 Dose: 15 mg Documented by: Escitalopram Oxalate (Lexapro) 10 mg PO QAM ESTUARDO Stop: 07/15/18 10:14 Last Admin: 06/16/18 09:40 Dose: 10 mg Documented by: Hydroxyzine HCl (Vistaril) 50 mg PO HSZ PRN PRN Reason: Insomnia Stop: 07/14/18 17:42 Last Admin: 06/16/18 21:11 Dose: 50 mg Documented by: Hydroxyzine HCl (Vistaril) 25 mg PO Q4H PRN PRN Reason: Anxiety Stop: 07/14/18 17:42 Magnesium Hydroxide (Milk Of Magnesia) 30 ml PO DAILY PRN PRN Reason: Heartburn Stop: 07/14/18 17:42 Sodium Chloride ([place] Nasal) 1 - 2 sprays NA PRN PRN PRN Reason: Nasal Dryness/Congestion Stop: 07/14/18 17:42 Venlafaxine HCl (Effexor Extended Release) 150 mg PO QAM ESTUARDO Stop: 07/15/18 10:14 Last Admin: 06/16/18 09:40 Dose: 150 mg Documented by: Post Discharge Appointments Primary Care Physician Name Of Family Doctor: ZOFIA Smith [facility] Date of Appointment with PCP: 06/27/18 Time of Appointment with PCP: 10:30am Provider Appointment Comment: [address] [place], [place] [address] Psychiatrist Name of Psychiatrist: ZOFIA Smith [facility] Psychiatrist's Date of Appointment with Psychiatrist: 06/27/18 Time of Appointment with Psychiatrist: 10:30am Psychiatric App[facility]ment [facility] [address] [facility] [place] [address] Therapist Name of Therapist: [place]? Digital Computer Systems Analyst Name of Digital Computer Systems Analyst: [facility] Phone Number for Digital Computer Systems Analyst: [phone] Case Management Appointment Comment: [address] [place] [address] CPT Code CPT Code 85891 (1) Depression Active/Remission status: currently active Depression Type: major depressive disorder Major depression episode severity: moderate Major depression recurrence: recurrent Qualified Code(s): F33.1 - Major depressive disorder, recurrent, moderate
[2018-06-17] MEDS: BusPIRone 15 MG TAB PO SCH ×2 (09:18→21:27)
[2018-06-17] MEDS: ESCITALOPRAM OXALATE 10 MG TAB PO SCH (09:19)
[2018-06-17] MEDS: VENLAFAXINE HCL XR 150 MG CAPXR PO SCH (09:20)
[2018-06-17 13:37] LABS: Amphetamine Urine, Confirm 3550 NG/ML (CUTOF=250)
[2018-06-18 07:09] VITALS: BP 96/66; TEMP 98.1
[2018-06-18] MEDS: ESCITALOPRAM OXALATE 10 MG TAB PO SCH (08:36)
[2018-06-18] MEDS: BusPIRone 15 MG TAB PO SCH (08:36)
[2018-06-18] MEDS ORDERED: VENLAFAXINE HCL XR 75 MG CAPXR PO SCH (09:00)
--- NOTE | 2018-06-18 09:24 | Discharge Summary ---
Date of Service June 18, 2018 History of Present Illness The patient is a 22-year-old [facility], currently in treatment with a nurse practitioner at home in the [place] area. She admits that she has struggled with anxiety for a long time, since she was a child and when she began having panic attacks, went into treatment for the first time. Her nurse practitioner started her on Zoloft but unfortunately she got more depressed. She was then started on Effexor and BuSpar which she continues to take. She does not think that the Effexor has been helpful at any dose. She was recently, several months ago, started on Lamictal although denies any symptoms of bipolarity. 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 She also notes that she is particularly sensitive when it comes to friends, for example saying that if her friends do not call her back in the time frame she expects, she thinks that they do not like her. The patient has noted that she gets more depressed after she drinks and she generally goes up to drink until drunk 1 time per week. She drank this past Friday and on Friday woke up feeling more depressed. She denies that she was feeling suicidal but says that she did not want to experience the depression and so just wanted to go to sleep, and that is why she took Lamictal and melatonin. She was apparently talking with a friend making statements about wanting to sleep away her depression and he took it as suicidal statements. Over the course of the last several months she describes that her mood has been somewhat up and down but predominantly depressed. She again denies that she has suicidal thoughts today. She describes her sleep is "awful" with significant difficulty falling asleep as much as 2 hours. Her appetite is been up which it usually is when she is depressed but her weight has been stable. She reports that her anxiety of late has been relatively well controlled and denies current panic attacks. Her energy is described as low. She denies hallucinations, self-injurious acts, symptoms of an eating disorder or OCD. She does admit that she chews her nails when she is anxious. She denies discrete episodes of euphoric mood, sleeplessness or pleasure seeking behaviors that would be congruent with a bipolar disorder. Physical Exam Mental Examination Well-nourished well-developed white female appearing her stated age. Casually dressed, with adequate grooming and hygiene. Calm, cooperative, and pleasant. Seated in no acute distress, with good eye contact and no abnormal movements. Mood is "good," and affect is euthymic, reactive, appropriate, and congruent. Thoughts are linear and goal-directed. Speech is spontaneous, normal rate, volume, and tone. She denies SI, HI, hallucinations, and paranoia; no delusions evident. Alert and oriented. Insight and judgment are fair. Vital Signs (Past 24 Hours) Last Vital Signs Temp 36.7 C 06/18/18 07:07 Pulse 86 06/18/18 07:08 Resp 16 06/18/18 07:07 BP 96/66 L 06/18/18 07:08 Pulse Ox 99 06/14/18 16:42 Principal Diagnosis Major depressive disorder, recurrent, severe without psychosis Anxiety disorder not otherwise specified Status post intentional overdose on lamotrigine and melatonin Psychiatric Data Patient was hospitalized for 4 days. On admission, a cross taper from venlafaxine XR test the palatine was started, as she reported poor response to venlafaxine XR 225 mg. Her dose was decreased and is at 75 mg at the time of discharge. She tolerated escitalopram well, and dose was increased to 10 mg bacilio ly. She had recently started on lamotrigine, for unclear indications, and reported that her response to alcohol have been magnified since she had been taking it. Due to this, and to unclear indication, it was discontinued. Her outpatient records from her nurse practitioner, Daisy Hubbard, were requested to clarify the use of this medication, but have not yet been received at the time of discharge. She was continued on her home dose of buspirone, and Vyvanse was held as it is nonformulary. As she reported worsening in mood the day following alcohol use, recommendations to abstain from alcohol until she is stable reviewed, and she accepted them. She actively participated in groups and therapy on the unit, and consistently denied suicidal thoughts throughout her stay. She had a family meeting with her parents on 06/17/2018, which she was very anxious about. They talked about her difficulties communicating openly with her parents about her struggles, difficulty talking about emotions, and parents noted she has always been a perfectionist. She processed her school stress and high expectations for performance. She was shared her safety plan with her parents, as well as her plan to get outpatient psychiatric care and therapy in [place]. Her parents were supportive and denied any acute safety concerns. Day of Discharge Assessment The patient reports she is tolerated the decreased dose of venlafaxine XR well, and denies discontinuation symptoms. She reports improved mood, and continues to deny suicidal thoughts. She is looking forward to working with a local therapist, and remains willing to abstain from alcohol, recognizing it worsens her mood. She is looking forward to returning to her classes and friends. She denies any safety concerns with discharge. Transition of Care Transition Of Care Record: was reviewed with the patient Advance Directives Advance Directives Information Provided: Yes Advance Directives: No Mental Health Advance Directive: No Advance Directives on File: No Living Will: No Power of Financial Service Representative: No Advance Directives Reason:: Declines as Mental Health Visit. Risk Factors Assessment Risk factors were mitigated by admission to the inpatient unit, adjusting medications to target mood and anxiety symptoms, involving her in groups and therapy, education regarding the risks of alcohol use and recommendations for abstinence, working on healthy coping skills and a discharge safety plan, referring her for outpatient mental health care, the family meeting with her parents. Patient has demonstrated improvement in mood here, has consistently denied suicidal thoughts, is able to review her discharge safety plan, and is willing to follow up with outpatient care. She is requesting discharge, and she is no longer at acute risk of harm to herself, can be discharged and managed as an outpatient at this time. She does not have risk factors for harm to others. Male: No : Yes Do You Have Access To A Gun?: No Health Problems: No Mental Health Diagnoses: Yes Substance Use Disorders: No Previous Attempt: No Family History of Suicide: No Previous Psychiatric Hospitalization: No Hopelessness: No Smoker: No Protective Factors Assessment : No Responsible for Young Children: No Employed: Yes Stable Relationships: Yes Supportive Family: Yes Tobacco Cessation at Discharge Tobacco Cessation Medication Prescribed at Discharge: Not Applicable/Non-Smoker Total Time Total Time Spent: Greater Than 30 Minutes Total Time Includes: Examination of the patient, Discharge Planning and Medication Reconciliation Discharge Data Lab Results 06/14/18 06/14/18 06/14/18 13:27 13:27 13:27 WBC RBC Hgb Hct MCV MCH MCHC RDW Std Deviation RDW Coeff of Miri Plt Count MPV Immature Gran % (Auto) Neut % (Auto) Lymph % (Auto) [place] % (Auto) Eos % (Auto) Baso % (Auto) Immature Gran # (Auto) Neut # (Auto) Lymph # (Auto) [place] # (Auto) Eos # (Auto) Baso # (Auto) Sodium Potassium Chloride Carbon Dioxide Anion Gap BUN Creatinine Est Cr Clr Drug Dosing Est GFR ( Amer) Est GFR (Non-Af Amer) BUN/Creatinine Ratio Glucose Calcium Total Bilirubin AST ALT Alkaline Phosphatase Troponin I Total Protein Albumin Globulin Albumin/Globulin Ratio TSH HCG, Qual Urine Color Yellow Urine Appearance Clear Urine pH 7.0 Ur Specific [place] 1.025 Urine Protein Negative Urine Glucose (UA) Negative Urine Ketones Trace H Urine Blood Negative Urine Nitrite Negative Urine Bilirubin Negative Urine Urobilinogen Negative Ur Leukocyte Esterase Negative Salicylates Urine Opiates Screen Neg Ur Methadone, Qual Neg Acetaminophen Urine Barbiturates Neg Ur Phencyclidine (PCP) Neg U Amphetamines Confirm 3550 A U Amphetamin/Meth Scrn Pos H U Methamphetamin Confrm NEGATIVE MDMA (Ecstasy) Screen Neg U Benzodiazepines Scrn Neg Ur Cocaine Metabolite Neg U Marijuana (THC) Screen Neg Ethyl Alcohol mg/dL 06/14/18 06/14/18 06/14/18 13:43 13:43 13:43 WBC 10.26 RBC 4.95 Hgb 15.5 Hct 44.3 MCV 89.5 MCH 31.3 MCHC 35.0 RDW Std Deviation 40.9 RDW Coeff of Miri 12.6 Plt Count 307 MPV 8.6 Immature Gran % (Auto) 0.2 Neut % (Auto) 74.1 Lymph % (Auto) 20.7 [place] % (Auto) 3.5 Eos % (Auto) 1.1 Baso % (Auto) 0.4 Immature Gran # (Auto) 0.02 Neut # (Auto) 7.61 H Lymph # (Auto) 2.12 [place] # (Auto) 0.36 Eos # (Auto) 0.11 Baso # (Auto) 0.04 Sodium 144 Potassium 4.0 Chloride 107 Carbon Dioxide 30 Anion Gap 7.0 BUN 12 Creatinine 0.81 Est Cr Clr Drug Dosing 87.1 Est GFR ( Amer) 121.2 Est GFR (Non-Af Amer) 104.6 BUN/Creatinine Ratio 14.3 Glucose 69 L Calcium 9.0 Total Bilirubin 0.5 AST 20 ALT 24 Alkaline Phosphatase 77 Troponin I < 0.015 Total Protein 7.7 Albumin 4.3 Globulin 3.4 Albumin/Globulin Ratio 1.3 TSH 0.777 HCG, Qual Urine Color Urine Appearance Urine pH Ur Specific [place] Urine Protein Urine Glucose (UA) Urine Ketones Urine Blood Urine Nitrite Urine Bilirubin Urine Urobilinogen Ur Leukocyte Esterase Salicylates < 1.7 L Urine Opiates Screen Ur Methadone, Qual Acetaminophen < 2 L Urine Barbiturates Ur Phencyclidine (PCP) U Amphetamines Confirm U Amphetamin/Meth Scrn U Methamphetamin Confrm MDMA (Ecstasy) Screen U Benzodiazepines Scrn Ur Cocaine Metabolite U Marijuana (THC) Screen Ethyl Alcohol mg/dL 06/14/18 06/14/18 06/14/18 13:43 13:43 13:43 WBC RBC Hgb Hct MCV MCH MCHC RDW Std Deviation RDW Coeff of Miri Plt Count MPV Immature Gran % (Auto) Neut % (Auto) Lymph % (Auto) [place] % (Auto) Eos % (Auto) Baso % (Auto) Immature Gran # (Auto) Neut # (Auto) Lymph # (Auto) [place] # (Auto) Eos # (Auto) Baso # (Auto) Sodium Potassium Chloride Carbon Dioxide Anion Gap BUN Creatinine Est Cr Clr Drug Dosing Est GFR ( Amer) Est GFR (Non-Af Amer) BUN/Creatinine Ratio Glucose Calcium Total Bilirubin AST ALT Alkaline Phosphatase Troponin I Cancelled Total Protein Albumin Globulin Albumin/Globulin Ratio TSH HCG, Qual Negative Urine Color Urine Appearance Urine pH Ur Specific [place] Urine Protein Urine Glucose (UA) Urine Ketones Urine Blood Urine Nitrite Urine Bilirubin Urine Urobilinogen Ur Leukocyte Esterase Salicylates Urine Opiates Screen Ur Methadone, Qual Acetaminophen Urine Barbiturates Ur Phencyclidine (PCP) U Amphetamines Confirm U Amphetamin/Meth Scrn U Methamphetamin Confrm MDMA (Ecstasy) Screen U Benzodiazepines Scrn Ur Cocaine Metabolite U Marijuana (THC) Screen Ethyl Alcohol mg/dL 64.5 H Hospital Course (1) Depression: 06/15 - Reduce Effexor XR to 150 mg daily to begin taper - Start Lexapro 10 mg daily - Continue home dose of buspar - Will hold Vyvanse today to evaluate anxiety off of stimulants - Q q5 min checks for safety - Encourage participation in group and individual counseling - FAmily meeting - Will need local providers - Obtain OP records from [facility] in [facility] - Recommend abstaining from alcohol given that she can predict being depressed the next day - Assist the patient to explore healthy coping strategies - Safety planning 06/16 - Family meeting tomorrow - Continue current meds, but consider adjustment tomorrow if no DC symptoms. 06/17 -Family meeting with parents today. -Decrease venlafaxine XR to 75 mg daily for tomorrow, and continue escitalopram 10 mg daily and buspirone 15 mg twice daily. -Patient will need follow-up with a psychiatrist both locally and in her home town, and would like to return to therapy with Melodie at home (although does not know her last name or the name of her practice, so we will need to determine this in order to re-refer her). She has previously been seen a [facility], but may benefit from working with a psychiatrist. Post Discharge Appointments Primary Care Physician Name Of Family Doctor: ZOFIA [facility] Date of Appointment with PCP: 06/27/18 Time of Appointment with PCP: 10:30am Provider Appointment Comment: [address], [place] [address] Psychiatrist Name of Psychiatrist: Leah Gutierrez Psychiatrist's Date of Appointment with Psychiatrist: 06/24/18 Time of Appointment with Psychiatrist: 10:20 a.m. Psychiatric Appointment Comment: [address] [place] [address] Therapist Name of Therapist: [facility] - Lluvia Stewart LCSW Therapist's Therapy Appointment Comment: [address] [facility] [address], [place] [address] Invasive Cardiovascular Technologist Name of Invasive Cardiovascular Technologist: [facility] - [facility] Phone Number for Invasive Cardiovascular Technologist: [phone] Date of Appointment with Invasive Cardiovascular Technologist: 06/22/18 Time of Appointment with Invasive Cardiovascular Technologist: 11:00 a.m. Case Management Appointment Comment: [address] [facility] Smoking Cessation Counseling Tobacco Cessation Medication Prescribed at Discharge: Not Applicable/Non-Smoker Contact Information Discharge Discharge Address: [address] [place] [address], [place] [address] Discharge Plan Discharge Items Patient Disposition: Home - Self-Care Reason For Visit: MDD Discharge Diagnosis: Major depressive disorder, medication overdose Discharge Goals: Decrease discomfort, Improve disease control, Improve function, Learn about illness, Prevent disease and Therapeutic intervention Activity: Per 'Additional Instructions' section Non-emergency contact: Psychiatrist and Therapist Call non-emergency contact if: you have any medication questions and your symptoms worsen Follow-up/Referrals: PCP,NO [Primary Care Provider] - Diet: Regular Addtl Provider Instructions: SPECIAL CARE INSTRUCTIONS: 1. Follow through with your scheduled aftercare appointments. If unable to keep an appointment, please call to reschedule. 2. Take your medication only as prescribed. Medication should not be changed or stopped without the approval of your doctor. In the event of worsening symptoms or concerns about side effects, contact your doctor immediately. 3. Utilize new healthy coping skills, anger management skills, and stress management skills learned during your hospitalization. Journal feelings and process them with a support person. Identify stressors or situations that may result in relapse, deterioration or inappropriate behaviors and develop a plan to deal with those issues. 4. If your coping skills are ineffective and you are in crisis, contact your outpatient providers for direction. If unable to reach your providers, please call the CAN HELP LINE AT or go to the closest Emergency Room. 5. Avoid alcohol and un-prescribed drugs. 6. You have been provided with the Mental Health Advance Directives Pamphlet for your review. AFTERCARE APPOINTMENTS: * Please call your insurance company prior to your scheduled appointment to confirm your aftercare providers are covered. Take your insurance information to your appointments. WHO TO CALL AND WHEN: Medical Emergencies: For questions or emergencies related to your hospital stay, please contact the Inpatient Behavioral Health Unit at [phone]. A psychiatric cns is on-call 14/10 for the Behavioral Health Unit for karina hawkins At any time you feel your situation is an emergency, you may also call 911 immediately. Your Doctors Instructions noted above were prepared by provider Candi Velasquez MD. Prescriptions: New escitalopram oxalate 10 mg Tablet 10 mg PO QAM Qty: 30 RF: 0 Continued buspirone 10 mg tablet 15 mg PO Q12 RF: 0 venlafaxine 75 mg capsule,extended release 24hr 75 mg PO QAM RF: 0 Vyvanse 50 mg Capsule 50 mg PO QAM RF: 0 Discontinued lamotrigine 25 mg tablet 25 mg PO QPM RF: 0 venlafaxine 150 mg capsule,extended release 24hr 150 mg PO QAM RF: 0 Stand-Alone Forms: [facility] Discharge Orders: Discharge Order (Routine); Ordered 06/18/18 Ordered By: Candi Velasquez Admission Data Admit Date/Time: 06/14/18 16:42 Attending Provider: Candi Velasquez Admit Provider: Candi Velasquez Primary Care Provider: PCP,GERI Service: Psychiatry Other Interventions: PSY Interdisciplinary Discharge Planning Last Done: 06/17/18 16:12 Pending Studies at Discharge: No
[2018-06-18 09:30] VITALS: PULSE 70
== END 2018-06-18 13:24 | disposition home or self-care (01) | DRG 885 ==
LOC: ED 12:41 → 3S 16:42